=== PATIENT | male | born 1990 | race Caucasian/White ===

== ENCOUNTER 2016-07-24 11:39 | Emergency (ER) | payer MEDICAID ==
[2015-11-22 08:36] VITALS: BMI 23.6
== END 2016-07-24 13:15 | disposition short-term general hospital (02) ==
LOC: C.ER 11:39
DX: Z00.8 Encounter for other general examination (principal)

== ENCOUNTER 2017-12-16 11:38 | Inpatient (IN) | payer MEDICAID ==
[2017-12-16 11:38] VITALS: BMI 23.6
[2017-12-16] MEDS ORDERED: Iohexol 240 (50 ml) PO ONE (12:49)
[2017-12-16] MEDS ORDERED: Iohexol 240 (50 ml) ONE (12:58)
[2017-12-16 13:20] LABS: BASO % 0.6 % (0.0-2.0); EOS # 0.1 K/uL (0.0-0.7); EOS % 0.8 % (0.0-4.0); HEMOGLOBIN 14.7 g/dL (12.0-18.0); LYMPH # 2.7 K/uL (1.0-4.3); LYMPH % 35.3 % (20.0-40.0); MEAN CELL VOLUME 86.8 fL (80.0-94.0); MEAN CORPUSCULAR HEMOGLOBIN 28.7 pg (27.0-31.0); MEAN CORPUSCULAR HGB CONC 33.1 g/dL (33.0-37.0); MEAN PLATELET VOLUME 8.1 fL (7.2-11.7); MONO # 0.7 K/uL (0.0-0.8); MONO % 9.5 % (0.0-10.0); NEUT # 4.1 K/uL (1.8-7.0); NEUT % 53.8 % (50.0-75.0); RBC 5.13 Mil/uL (4.40-5.90); RED CELL DISTRIBUTION WIDTH 14.6 % (11.5-14.5); WHITE BLOOD COUNT 7.6 K/uL (4.8-10.8)
--- NOTE | 2017-12-16 13:24 | C.PDOC ---
History Of Present Illness 27 year old male with a psychiatric and HIV (2012) history presents to the ED for evaluation of scrotal pain bilaterally since February. Patient states he has not received HIV treatment. Notes bilateral heavy feeling to the scrotum, rectal pain with bowel movement for the last 3-4 days, feels a ball in the rectal area, and daily diarrhea after every meal for the last few months. Poor historian. Denies recent anal intercourse, foreign body incursion to the rectum, fever, nausea, vomiting, and any other associated symptoms. <Aziza Taylor - Last Filed: 12/16/17 17:31> <Modesta Bella - Last Filed: 12/16/17 14:37> History Per: Patient History/Exam Limitations: no limitations Onset/Duration Of Symptoms: Days Current Symptoms Are (Timing): Still Present <Aziza Taylor - Last Filed: 12/16/17 17:31> Time Seen by Provider: 12/16/17 12:22 Chief Complaint (Nursing): Male Genitourinary Past Medical History Vital Signs: Last Vital Signs Temp 98 F 12/16/17 11:51 Pulse 97 H 12/16/17 11:51 Resp 18 12/16/17 11:51 BP 112/77 12/16/17 11:51 Pulse Ox 98 12/16/17 14:03 - [facility] Procedures PSYCHIA INTERV/EVAL NEC (05/20/14) VENOUS PUNCTURE NEC (05/20/14) <Modesta Bella - Last Filed: 12/16/17 14:37> Reviewed: Historical Data, Nursing Documentation, Vital Signs Vital Signs: Last Vital Signs Temp 98 F 12/16/17 11:51 Pulse 97 H 12/16/17 11:51 Resp 18 12/16/17 11:51 BP 112/77 12/16/17 11:51 Pulse Ox 98 12/16/17 11:51 - Medical History PMH: Anxiety, Bipolar Disorder, Depression, HIV, Post Traumatic Stress Disorder, Schizophrenia Denies: Diabetes, Hepatitis, HTN, Seizures, Sexually Transmitted Disease - [facility] Procedures PSYCHIA INTERV/EVAL NEC (05/20/14) VENOUS PUNCTURE NEC (05/20/14) Family History: States: Unknown Family Hx - Social History Hx Tobacco Use: Yes Hx Alcohol Use: No Hx Substance Use: Yes - Immunization History Hx Tetanus Toxoid Vaccination: No Hx Influenza Vaccination: No Hx Pneumococcal Vaccination: No <Aziza Taylor - Last Filed: 12/16/17 17:31> Review Of Systems Except As Marked, All Systems Reviewed And Found Negative. Constitutional: Negative for: Fever, Chills Gastrointestinal: Positive for: Diarrhea, Rectal Pain (with bowel movement. foreign body sensation. ). Negative for: Nausea, Vomiting Genitourinary: Positive for: Other (heaviness to the scrotum. ) <Aziza Taylor - Last Filed: 12/16/17 17:31> Physical Exam - Physical Exam Appears: Non-toxic, Other (well developed. well nourished.) Skin: Normal Color, Warm, Dry, No Other (erythema.) Head: Atraumatic, Normacephalic Eye(s): bilateral: Normal Inspection Oral Mucosa: Moist Neck: Normal ROM, Supple Chest: Symmetrical, No Deformity Cardiovascular: Rhythm Regular, No Murmur Respiratory: Normal Breath Sounds, No Rales, No Rhonchi, No Wheezing Gastrointestinal/Abdominal: Normal Exam, Soft, No Tenderness Rectal: No Hemorrhoids (external ), Other (excoriation at the 3 oclock position. pt unable to tolerate rectal exam due to pain. ) Back: No CVA Tenderness, No Vertebral Tenderness, No Paraspinal Tenderness Male Genital: No Testicular Tenderness, No Testicular Swelling, No Circumcised, Other (no penile discharge. no lesions on penis. scrotum appears normal. 2mm punctate on the scrotum.) Extremity: Normal ROM (x4) Neurological/Psych: Oriented x3, Normal Speech Gait: Steady <Aziza Taylor - Last Filed: 12/16/17 17:31> ED Course And Treatment - Laboratory Results Result Diagrams: 12/16/17 12:57 12/16/17 12:57 <Modesta Bella - Last Filed: 12/16/17 14:37> - Laboratory Results Result Diagrams: 12/16/17 12:57 12/16/17 12:57 O2 Sat by Pulse Oximetry: 98 (RA) Pulse Ox Interpretation: Normal - CT Scan/US Testicular US Other Rad Studies (CT/US): Read By Radiologist CT/US Interpretation: FINDINGS: RIGHT TESTICLE: Measures 5.5 x 2.6 x 2.8 cm. Homogeneous echotexture. No mass. Normal blood flow demonstrated. RIGHT EPIDIDYMIS: Normal size, morphology and vascularity. Incidental 2 mm epididymal cyst noted.. LEFT TESTICLE: Measures 5.3 x 2.3 x 3.3 cm. Homogeneous echotexture. No mass. Normal blood flow demonstrated. LEFT EPIDIDYMIS: Normal size, morphology and vascularity.. HYDROCELE: None. VARICOCELE: Left varicocele noted. OTHER FINDINGS: None. IMPRESSION: Left varicocele. 2 mm right epididymal cyst. Otherwise unremarkable examination. <Aziza Taylor - Last Filed: 12/16/17 17:31> Medical Decision Making Medical Decision Making: Plan: --CT ABD/Pelvic PO & IV Contrast --Blood sent. --Chlamydia/GC RNA --Given Iohexol. --Urinalysis. --Testicular US Progress/Update: Given the patient's HIV history, labs and abdominal CT was ordered to rule out rectal abscess and any other pathology. [id number] Nguyễn <Aziza Taylor - Last Filed: 12/16/17 17:31> Disposition <Modesta Bella - Last Filed: 12/16/17 14:37> Discussed With : Ila Edwards Doctor Will See Patient In The: Hospital - Disposition Disposition Time: 17:31 <Aziza Taylor - Last Filed: 12/16/17 17:31> - Disposition Disposition: HOSPITALIZED Condition: STABLE Forms: [facility] (Tuvaluan) - Clinical Impression Clinical Impression: Proctitis - PA / TWIST TESTER / Resident Statement MD/DO has reviewed & agrees with the documentation as recorded. - Scribe Statement The provider has reviewed the documentation as recorded by the Scribe (Lesley Cha) All medical record entries made by the Scribe were at my direction and personally dictated by me. I have reviewed the chart and agree that the record accurately reflects my personal performance of the history, physical exam, medical decision making, and the department course for this patient. I have also personally directed, reviewed, and agree with the discharge instructions and disposition. <Aziza Taylor - Last Filed: 12/16/17 17:31>
[2017-12-16 13:39] LABS: ALB/GLOB RATIO 1.1 (1.0-2.1); ALBUMIN 4.1 g/dL (3.5-5.0); ALT/SGPT 28 U/L (21-72); AST/SGOT 23 U/L (17-59); BLOOD UREA NITROGEN 13 mg/dL (9-20); CALCIUM 8.9 mg/dl (8.6-10.4); GFR NON-AFRICAN AMERICAN > 60; LIPASE 29 U/L (23-300)
--- NOTE | 2017-12-16 14:11 | US ---
Date of service: 12/16/2017 HISTORY: bilateral teste pain TECHNIQUE: Realtime sonography through the scrotum with color and doppler flow. COMPARISON: None Available. FINDINGS: RIGHT TESTICLE: Measures 5.5 x 2.6 x 2.8 cm. Homogeneous echotexture. No mass. Normal blood flow demonstrated. RIGHT EPIDIDYMIS: Normal size, morphology and vascularity. Incidental 2 mm epididymal cyst noted.. LEFT TESTICLE: Measures 5.3 x 2.3 x 3.3 cm. Homogeneous echotexture. No mass. Normal blood flow demonstrated. LEFT EPIDIDYMIS: Normal size, morphology and vascularity.. HYDROCELE: None. VARICOCELE: Left varicocele noted. OTHER FINDINGS: None. IMPRESSION: Left varicocele. 2 mm right epididymal cyst. Otherwise unremarkable examination.
[2017-12-16] MEDS ORDERED: Iodixanol 320 mg/ml 150 ml Bottle IV ONE (14:29)
[2017-12-16 15:46] LABS: URINE BILIRUBIN NEGATIVE (NEGATIVE); URINE BLOOD NEGATIVE (NEGATIVE); URINE CLARITY Clear (Clear); URINE COLOR Yellow (YELLOW); URINE GLUCOSE (UA) NORMAL (Normal); URINE LEUKOCYTE ESTERASE NEG Leu/uL (Negative); URINE PROTEIN NEGATIVE (NEGATIVE); URINE UROBILINOGEN NORMAL mg/dL (0.2-1.0)
--- NOTE | 2017-12-16 16:07 | CT ---
Date of service: 12/16/2017 PROCEDURE: CT Abdomen and Pelvis with contrast HISTORY: hx untreated hiv, rectal pain COMPARISON: None. TECHNIQUE: Following oral and intravenous contrast administration, a CT examination of the abdomen and pelvis performed from the domes of the diaphragms to the symphysis pubis with reformatted datasets provided not only axial but also sagittal and coronal series. Coronal and sagittal reformats were generated. contrast dose: Visipaque 320, 100 cc Radiation dose: Total exam DLP = 421.17 mGy-cm. This CT exam was performed using one or more of the following dose reduction techniques: Automated exposure control, adjustment of the mA and/or kV according to patient size, and/or use of iterative reconstruction technique. FINDINGS: LOWER THORAX: Unremarkable. LIVER: Unremarkable. No gross lesion or ductal dilatation. GALLBLADDER AND BILE DUCTS: Unremarkable. PANCREAS: Unremarkable. No gross lesion or ductal dilatation. SPLEEN: The megaly without focal mass. Spleen measures up to 13.7 cm. ADRENALS: Unremarkable. No mass. KIDNEYS AND URETERS: Unremarkable. No hydronephrosis. No solid mass. VASCULATURE: Unremarkable. No aortic aneurysm. BOWEL: No bowel obstruction is identified. Small large-bowel loops appear grossly nonfocal with limited retained fecal material scattered throughout left hemicolon, [id number] the right. The stomach is unremarkable. Limited rectal thickening is suggested the inferior rectum may reflect limited proctitis. Local pericolic rectal reaction and shotty lymph nodes are identified and clinically correlate for potential infectious or inflammatory process with neoplasm not completely excluded. APPENDIX: The appendix appears upper limits normal thickness and is likely not acutely inflamed. It does not filled oral contrast material however clinically correlate for potential appendicitis. PERITONEUM: Unremarkable. No free fluid. No free air. LYMPH NODES: Unremarkable. No enlarged lymph nodes. BLADDER: Urinary bladder wall is in and smooth without suspicious nodularity. REPRODUCTIVE: Unremarkable. BONES: No acute fracture. OTHER FINDINGS: None. IMPRESSION: 1. Findings most compatible with inferior rectal proctitis. No abscess. 2. Likely no appendicitis or appendix is upper limits normal caliber and does not feel that oral contrast material though the cecum is well opacified. Clinically correlate further though independent appendicitis is not suspected. 3. Splenomegaly.
[2017-12-16] MEDS ORDERED: cefTRIAXone IV 1 gm in Dextros 50 ML IVPB STA (17:23)
[2017-12-16] MEDS ORDERED: Tmp-Smz 800 mg-160 mg DS Tab PO STA (17:30)
[2017-12-16] MEDS ORDERED: cefTRIAXone 1 gm 1 GM/100 ML BAG IVPB ONE (17:42)
[2017-12-16] MEDS ORDERED: Tmp-Smz 800 mg-160 mg DS Tab ONE (17:49)
[2017-12-17 08:00] LABS: B-TYPE NATRIURETIC PEPTIDE 23.9 pg/mL (0-450)
[2017-12-17 08:50] LABS: IRON 71 ug/dL (49-181)
[2017-12-17 08:56] LABS: FOLATE 9.4 ng/mL
[2017-12-17 09:02] LABS: % IRON SATURATION 25 (20-55); TOTAL IRON BINDING CAPACITY 279 ug/dL (250-450)
[2017-12-17] MEDS: Divalproex 500 mg DR Tab PO SCH ×2 (09:54→17:31)
[2017-12-17] MEDS: Enoxaparin 30 mg Syringe SC SCH (09:54)
[2017-12-17] MEDS ORDERED: QUETIAPINE PO SCH (10:00)
--- NOTE | 2017-12-17 18:29 | CP.PCM.CON ---
History of Present Illness - History of Present Illness History of Present Illness: 27 year old male with a psychiatric and HIV (2012) history presents to the ED for evaluation of rectal pain and scrotal discomfort. Denies recent anal intercourse, foreign body incursion to the rectum, admits to recurrent diarrhea and rectal pain CT done in ER + for proctitis not taking any HIV meds and doesnnt know his viral load or T cell count - Medical History PMH: Anxiety, Bipolar Disorder, Depression, HIV, Post Traumatic Stress Disorder, Schizophrenia Denies: Diabetes, Hepatitis, HTN, Seizures, Sexually Transmitted Disease - [facility] Procedures PSYCHIA INTERV/EVAL NEC (05/20/14) VENOUS PUNCTURE NEC (05/20/14) Review of Systems - Review of Systems All systems: reviewed and no additional remarkable complaints except - Constitutional Constitutional: As Per HPI - EENT Eyes: absent: As Per HPI, Blind Spots, Blurred Vision, Change in Vision, Decreased Night Vision, Diplopia, Discharge, Dry Eye, Exophthalmos, Floaters, Irritation, Itchy Eyes, Loss of Peripheral Vision, Pain, Photophobia, Requires Corrective Lenses, Sees Flashes, Spots in Vision, Tunnel Vision, Other Visual Disturbances, Loss of Vision, Other Ears: absent: As Per HPI, Decreased Hearing, Ear Discharge, Ear Pain, Tinnitus, Abnormal Hearing, Disequilibrium, Dizziness, Other Nose/Mouth/Throat: absent: As Per HPI, Epistaxis, Nasal Congestion, Nasal Discharge, Nasal Obstruction, Nasal Trauma, Nose Pain, Post Nasal Drip, Sinus Pain, Sinus Pressure, Bleeding Gums, Change in Voice, Dental Pain, Dry Mouth, Dysphagia, Halitosis, Hoarsness, Lip Swelling, Mouth Lesions, Mouth Pain, Odynophagia, Sore Throat, Throat Swelling, Tongue Swelling, Facial Pain, Neck Pain, Neck Mass, Other - Cardiovascular Cardiovascular: absent: As Per HPI, Acrocyanosis, Chest Pain, Chest Pain at Rest, Chest Pain with Activity, Claudication, Diaphoresis, Dyspnea, Dyspnea on Exertion, Edema, Irregular Heart Rhythm, Pain Radiating to Arm/Neck/Jaw, Leg Edema, Leg Ulcers, Lightheadedness, Orthopnea, Palpitations, Paroxysmal Nocturnal Dyspnea, Pedal Edema, Radiating Pain, Rapid Heart Rate, Slow Heart Rate, Syncope, Other - Respiratory Respiratory: absent: As Per HPI, Cough, Dyspnea, Hemoptysis, Dyspnea on Exertion, Wheezing, Snoring, Stridor, Pain on Inspiration, Chest Congestion, Excessive Mucous Production, Change in Mucous Color, Pain with Coughing, Other - Gastrointestinal Gastrointestinal: As Per HPI - Genitourinary Genitourinary: As Per HPI - Musculoskeletal Musculoskeletal: absent: As Per HPI, Abnormal Gait, Arthralgias, Atrophy, Back Pain, Deformity, Joint Swelling, Limited Range of Motion, Loss of Height, Muscle Cramps, Muscle Weakness, Myalgias, Neck Pain, Numbness, Radiating Pain into Limb, Stiffness, Tingling, Other - Integumentary Integumentary: absent: As Per HPI, Acne, Alopecia, Bleeding Lesions, Change in Hair, Change in Nails, Change in Pigmentation, Changing Lesions, Dry Skin, Erythema, Furuncle, Hirsutism, Lesions, New Lesions, Non-Healing Lesions, Photosensitivity, Pruritus, Rash, Skin Pain, Skin Ulcer, Sores, Striae, Swelling, Unusual Bruising, Wounds, Jaundice, Other - Neurological Neurological: absent: As Per HPI, Abnormal Gait, Abnormal Hearing, Abnormal Movements, Abnormal Speech, Behavioral Changes, Burning Sensations, Confusion, Convulsions, Disequilibrium, Dizziness, Numbness, Focal Weakness, Frequent Falls, Headaches, Lack of Coordination, Loss of Vision, Memory Loss, Pares thesias, Radicular Pain, Restless Legs, Sensory Deficit, Syncope, Tingling, Tremor, Vertigo, Weakness, Other Visual Disturbances, Other - Psychiatric Psychiatric: As Per HPI - Endocrine Endocrine: absent: As Per HPI, Change in Body Appearance, Change in Libido, Cold Intolorance, Deepening of Voice, Excessive Sweating, Fatigue, Flushing, Heat Intolorance, Increase in Ring/Shoe/Hat Size, Palpitations, Polydipsia, Polypha ledy, Polyuria, Other - Hematologic/Lymphatic Hematologic: absent: As Per HPI, Easy Bleeding, Easy Bruising, Lymphadenopathy, Other Past Patient History - Infectious Disease Hx of Infectious Diseases: None - Tetanus Immunizations Tetanus Immunization: Unknown - Past Social History Smoking Status: Light Smoker < 10 Cigarettes Daily - CARDIAC Hx Hypertension: No - PULMONARY Hx Tuberculosis: No - NEUROLOGICAL Hx Seizures: No - HEMATOLOGICAL/ONCOLOGICAL Hx Human Immunodeficiency Virus (HIV): Yes - MUSCULOSKELETAL/RHEUMATOLOGICAL Hx Falls: No - GENITOURINARY/GYNECOLOGICAL Hx Sexually Transmitted Disorders: No - PSYCHIATRIC Hx Anxiety: Yes Hx Bipolar Disorder: Yes Hx Depression: Yes Hx Post Traumatic Stress Disorder: Yes Hx Schizophrenia: Yes Hx Substance Use: Yes - SURGICAL HISTORY Hx Surgeries: No - ANESTHESIA Hx Anesthesia: No Hx Anesthesia Reactions: No Hx Malignant Hyperthermia: No Meds Allergies/Adverse Reactions: Allergies Allergy/AdvReac Type Severity Reaction Status Date / Time No Known Allergies Allergy Verified 12/16/17 11:54 - Medications Medications: Current Medications Acetaminophen (Tylenol 325mg Tab) 650 mg PO Q4H PRN PRN Reason: pain fever Last Admin: 12/17/17 17:34 Dose: 650 mg Divalproex Sodium (Depakote Dr) 1,000 mg PO BID [facility] Last Admin: 12/17/17 17:31 Dose: 1,000 mg Enoxaparin Sodium (Lovenox) 30 mg SC DAILY [facility] Last Admin: 12/17/17 09:54 Dose: 30 mg Famotidine (Pepcid) 40 mg PO DAILY [facility] Last Admin: 12/17/17 09:54 Dose: 40 mg Influenza Virus Vaccine (Fluzone Quad [id number]) 60 mcg IM .ONCE ONE Stop: 12/19/17 14:01 Ondansetron HCl (Zofran Inj) 4 mg IVP Q6 PRN PRN Reason: Nausea/Vomiting Pneumococcal Polyvalent Vaccine (Pneumovax 23 Vaccine) 0.5 ml IM .ONCE ONE Stop: 12/19/17 14:01 Quetiapine Fumarate (Seroquel) 50 mg PO [facility] Physical Exam - Constitutional Appears: Non-toxic, Chronically Ill - Head Exam Head Exam: NORMOCEPHALIC - Eye Exam Eye Exam: absent: Scleral icterus - ENT Exam ENT Exam: Mucous Membranes Dry - Neck Exam Neck exam: Negative for: Lymphadenopathy - Respiratory Exam Respiratory Exam: Decreased Breath Sounds, Clear to Auscultation Bilateral - Cardiovascular Exam Cardiovascular Exam: REGULAR RHYTHM, +S1, +S2 - GI/Abdominal Exam GI & Abdominal Exam: Diminished Bowel Sounds, Soft. absent: Tenderness - Rectal Exam Rectal Exam: Deferred - Exam Exam: NORMAL INSPECTION - Extremities Exam Extremities exam: Negative for: pedal edema - Back Exam Back exam: absent: CVA tenderness (L), CVA tenderness (R) - Neurological Exam Neurological exam: Alert, CN II-XII Intact, Oriented x3, Reflexes Normal - Psychiatric Exam Psychiatric exam: Normal Mood Results - Vital Signs Recent Vital Signs: Last Vital Signs Temp 98.1 F 12/17/17 15:55 Pulse 74 12/17/17 15:55 Resp 20 12/17/17 15:55 BP 101/63 12/17/17 15:55 Pulse Ox 97 12/17/17 15:55 - Labs Result Diagrams: 12/16/17 12:57 12/16/17 12:57 Labs: Laboratory Results - last 24 hr 12/16/17 12/17/17 12/17/17 17:44 07:22 07:22 Hemoglobin A1c 5.1 Iron TIBC % Saturation NT-Pro-B Natriuret Pep 23.9 Triglycerides 78 Cholesterol 87 LDL Cholesterol Direct 46 HDL Cholesterol 20 L Vitamin B12 449 Folate 9.4 RPR Nonreactive 12/17/17 07:22 Hemoglobin A1c Iron 71 TIBC 279 % Saturation 25 NT-Pro-B Natriuret Pep Triglycerides Cholesterol LDL Cholesterol Direct HDL Cholesterol Vitamin B12 Folate RPR Assessment & Plan (1) Proctitis Status: Acute (2) Manic bipolar I disorder Status: Acute - Assessment and Plan (Free Text) Assessment: HIV r/o STD cont iv and PO rx GI eval recommended
[2017-12-17] MEDS: Tmp-Smz 800 mg-160 mg DS Tab PO SCH (19:24)
[2017-12-17] MEDS: Vancomycin 1 gm/NS 200 ml 1 GM/200 ML BAG IVPB SCH (21:04)
--- NOTE | 2017-12-18 03:46 | PN ---
DATE: 12/17/2017 SUBJECTIVE: The patient is a 27-year-old male. The patient is seen and examined at the bedside on 12/17/2017. Looking comfortable. Still has rectal pain, once in a while getting recurrent diarrhea. Very noncompliant. Not taking HIV medications, urged to take that. No fever, no chills. No headache. No dizziness. No chest pain or palpitation. PHYSICAL EXAMINATION: VITAL SIGNS: Temperature 98.1, pulse 74, respiratory rate 20, blood pressure 101/63, pulse oximetry 97. HEENT: Head, normocephalic and atraumatic. Eyes, PERRLA. Extraocular muscles intact. Conjunctivae clear. Nose patent. Mucous membranes moist. NECK: Supple. No carotid bruits. No JVD or thyromegaly. CHEST: Bilaterally symmetrical. HEART: S1 and S2 positive. LUNGS: Clear to auscultation. ABDOMEN: Soft. Positive bowel sounds. No organomegaly. EXTREMITIES: No edema, no cyanosis. NEUROLOGIC: The patient is awake, alert. Follows simple commands. LABORATORY DATA: White blood cells noted , hemoglobin 14.7, hematocrit 44.5, platelets 294. Sodium 147, potassium 4.1, BUN 30, creatinine 0.9, glucose 49. ASSESSMENT AND PLAN: Mr. Rakesh Acevedo is a 27-year-old male with hypoglycemia, has proctitis, manic bipolar disorder, human immunodeficiency virus positive, rule out sexually transmitted disease. Continue intravenous and oral antibiotics. We will put consult with Gastroenterology. CAT scan of abdomen and pelvis was done and reviewed by me. Testicular ultrasound was done also. Left varicocele, 2 mm; right epididymal cyst, otherwise unremarkable examination. CAT scan of the abdomen and pelvis reviewed, showed inferior rectal proctitis and no abscess. Urged to take medicines regularly. Repeat labs. We will follow up. Ila Edwards MD [email or web address]
[2017-12-18] MEDS: Tmp-Smz 800 mg-160 mg DS Tab PO SCH ×2 (06:33→17:51)
[2017-12-18 07:31] LABS: HEMOGLOBIN 14.8 g/dL (12.0-18.0); MEAN CELL VOLUME 86.4 fL (80.0-94.0); MEAN CORPUSCULAR HEMOGLOBIN 29.8 pg (27.0-31.0); MEAN CORPUSCULAR HGB CONC 34.5 g/dL (33.0-37.0); MEAN PLATELET VOLUME 8.3 fL (7.2-11.7); RBC 4.98 Mil/uL (4.40-5.90); RED CELL DISTRIBUTION WIDTH 14.3 % (11.5-14.5)
--- NOTE | 2017-12-18 07:49 | HP ---
CHIEF COMPLAINT: Rectal pain. HISTORY OF PRESENT ILLNESS: The patient is a 27-year-old male with a psychiatric history and HIV positive, who came to the emergency department for evaluation of scrotal pain bilaterally since February. The patient says that he never received HIV treatment, noticed bilaterally having feeling to the scrotum, rectal pain with bowel movements for the last three to four days, feeling a boil in the rectal area and daily diarrhea after every meal for the last few months. Poor historian. Denies recent anal intercourse, foreign body insertion to the rectum. No fever, chills, nausea, or vomiting. We admitted the patient to ID consult. REVIEW OF SYSTEMS: The patient was seen and examined at the bedside in the ER. This is a history and physical for 12/16/2017. The patient was seen and examined at bedside on 12/16/2017, looking comfortable. No fever. No chills. No nausea or vomiting. Feeling rectal pain. No dyspnea. PHYSICAL EXAMINATION: VITAL SIGNS: Temperature 98, heart rate 97, respiratory rate 18, blood pressure 112/77. HEENT: Head: Normocephalic and atraumatic. Eyes: PERRLA. Extraocular movements intact. Conjunctivae pale. Nose patent. Mucous membranes moist. NECK: Supple. No carotid bruits, JVD, or thyromegaly. CHEST: Bilaterally symmetrical. HEART: S1, S2 positive. LUNGS: Clear to auscultation. ABDOMEN: Soft. Bowel sounds are present. No organomegaly. EXTREMITIES: No edema. No cyanosis. NEUROLOGICAL: The patient is awake, alert, moving all four extremities. No focal deficits. LABORATORY DATA: White blood cells 7.6, hemoglobin 14.7, hematocrit 44.5, platelets 294. Sodium 147, potassium 4.1, BUN 13, creatinine 0.1, glucose 49. ASSESSMENT AND PLAN: The patient is a 27-year-old male with hypoglycemia, came with rectal pain. ____ ultrasound is done. According to that, the patient has left varicocele, 2 mm right epididymal cyst and proctitis. Human immunodeficiency virus positive. The patient is seen by Dr. Nguyễn also of Infectious Disease and antibiotic was started. The patient was noncompliant with human immunodeficiency virus medicine, advised to take medicine. The patient is understanding. He is oriented x3. The patient has a history of anxiety, bipolar disorder, depression, history of currently posttraumatic stress disorder, schizophrenia. Gastrointestinal and deep venous thrombosis prophylaxes given. Repeat labs. We will follow up. Ila Edwards MD
[2017-12-18 08:20] LABS: HEPATITIS B SURFACE AG Negative (NEGATIVE)
[2017-12-18 08:25] LABS: HEPATITIS A IGM NEGATIVE (NEGATIVE); HEPATITIS B CORE AB NEGATIVE (NEGATIVE)
[2017-12-18 08:37] LABS: HEPATITIS C ANTIBODY NEGATIVE (NEGATIVE)
[2017-12-18] MEDS: Divalproex 500 mg DR Tab PO SCH ×2 (10:31→17:52)
[2017-12-18] MEDS: Vancomycin 1 gm/NS 200 ml 1 GM/200 ML BAG IVPB SCH (10:32)
[2017-12-18] MEDS: Enoxaparin 30 mg Syringe SC SCH (10:32)
[2017-12-18] MEDS: cefTRIAXone 2 GM in Sodium Chloride 0.9% 100 ML IVPB SCH (10:33)
[2017-12-18] MEDS ORDERED: Tmp-Smz 800 mg-160 mg DS Tab PO SCH (11:30)
--- NOTE | 2017-12-18 17:38 | CP.PCM.PN ---
Subjective - Date & Time of Evaluation Date of Evaluation: 12/18/17 Time of Evaluation: 09:00 - Subjective Subjective: blood cultures positive repeat sent At some point will need GI eval to r/o Carcinoma in situ Objective - Vital Signs/Intake and Output Vital Signs (last 24 hours): Temp Pulse Resp BP Pulse Ox 98.5 F 66 18 106/67 97 12/18/17 07:00 12/18/17 07:00 12/18/17 14:22 12/18/17 07:00 12/18/17 14:22 Intake and Output: 12/18/17 12/18/17 06:59 18:59 Intake Total 600 Balance 600 - Medications Medications: Current Medications Acetaminophen (Tylenol 325mg Tab) 650 mg PO Q4H PRN PRN Reason: pain fever Last Admin: 12/17/17 17:34 Dose: 650 mg Divalproex Sodium (Depakote Dr) 1,000 mg PO BID [facility] Last Admin: 12/18/17 10:31 Dose: 1,000 mg Doxycycline Hyclate (Doryx) 100 mg PO Q12H [facility]; Protocol Last Admin: 12/18/17 06:33 Dose: 100 mg Enoxaparin Sodium (Lovenox) 30 mg SC DAILY [facility] Last Admin: 12/18/17 10:32 Dose: 30 mg Famotidine (Pepcid) 40 mg PO DAILY [facility] Last Admin: 12/18/17 10:32 Dose: 40 mg Ceftriaxone Sodium 2 gm/ (Sodium Chloride) 100 mls @ 100 mls/hr IVPB DAILY [facility]; Protocol Last Admin: 12/18/17 10:33 Dose: 100 mls/hr Vancomycin/Sodium Chloride (Vancomycin 1 Gm/Ns 200 Ml) 1 gm in 200 mls @ 133 mls/hr IVPB Q12H [facility]; Protocol Stop: 12/22/17 21:01 Last Admin: 12/18/17 10:32 Dose: 133 mls/hr Influenza Virus Vaccine (Fluzone Quad [id number]) 60 mcg IM .ONCE ONE Stop: 12/19/17 14:01 Ondansetron HCl (Zofran Inj) 4 mg IVP Q6 PRN PRN Reason: Nausea/Vomiting Pneumococcal Polyvalent Vaccine (Pneumovax 23 Vaccine) 0.5 ml IM .ONCE ONE Stop: 12/19/17 14:01 Quetiapine Fumarate (Seroquel) 50 mg PO [facility] Last Admin: 12/17/17 22:03 Dose: 50 mg Trimethoprim/Sulfamethoxazole (Bactrim Ds Tab) 1 tab PO 0630,1830 [facility]; Protocol - Labs Labs: 12/18/17 07:00 12/16/17 12:57 - Constitutional Appears: Non-toxic, Chronically Ill - Head Exam Head Exam: NORMOCEPHALIC - Eye Exam Eye Exam: PERRL - ENT Exam ENT Exam: Mucous Membranes Dry - Neck Exam Neck Exam: absent: Lymphadenopathy - Respiratory Exam Respiratory Exam: Decreased Breath Sounds - Cardiovascular Exam Cardiovascular Exam: REGULAR RHYTHM - GI/Abdominal Exam GI & Abdominal Exam: Distended, Soft - Rectal Exam Rectal Exam: Deferred - Exam Exam: NORMAL INSPECTION - Extremities Exam Extremities Exam: absent: Pedal Edema - Back Exam Back Exam: absent: CVA tenderness (L), CVA tenderness (R) Assessment and Plan (1) Proctitis Status: Acute (2) Manic bipolar I disorder Status: Acute - Assessment and Plan (Free Text) Assessment: 27 yo male with hx of mental health problems and HIV ( off HAART) is admitted with rectal pain Has positive blood c/s which could be contaminant empiric rx for bacteremia , chlamydia, gonnorhea etc At some point will need GI eval to r/o Carcinoma in situ Started PCP prophylaxis
--- NOTE | 2017-12-18 17:39 | CP.PCM.PCO ---
Physician Communication Note - Physician Communication Note Physician Communication Note: will need GI eval
--- NOTE | 2017-12-19 05:07 | PN ---
DATE: 12/18/2017SUBJECTIVE: The patient is a 27-year-old male. The patient was seen and examined at bedside on 12/18/2017, looking comfortable. Blood cultures are positive. Repeat cultures sent by Dr. Nguyễn. According to him, the patient needs a GI evaluation for carcinoma in situ. No fever. No chills. PHYSICAL EXAMINATION: VITAL SIGNS: Temperature 98.5, pulse 66, respiratory rate 18, blood pressure 102/67, and pulse oximetry 97. HEENT: Head, normocephalic and atraumatic. Eyes, PERRLA. Extraocular muscles intact. Conjunctivae clear. Nose is patent. Mucous membranes moist. NECK: Supple. No carotid bruit, JVD, or thyromegaly. CHEST: Bilaterally symmetrical. HEART: S1 and S2 positive. LUNGS: Clear to auscultation. ABDOMEN: Soft. Bowel sounds present. No organomegaly. EXTREMITIES: No edema. No cyanosis. NEUROLOGIC: The patient is awake and alert. Moving all four extremities. No focal deficits. MEDICATIONS: Tylenol, Depakote, doxycycline, Lovenox, Pepcid, ceftriaxone, vancomycin, Fluzone, Zofran, and pneumonia vaccine. LABORATORY DATA: White blood cells 6.7, hemoglobin 14.8, hematocrit 42.1, and platelets 272. Sodium 147, potassium 4.1, BUN 30, creatinine 0.9, and glucose 49. ASSESSMENT AND PLAN: Mr. 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 Admitted with rectal pain. Has positive blood cultures which proved to be contaminated. Empiric treatment for bacteremia . According to Dr. Nguyễn, we need a gastroenterology evaluation to rule out carcinoma in situ. prophylaxis. We will call Gastroenterology. We will follow up. Ila Edwards MD MTDD
[2017-12-19] MEDS: Tmp-Smz 800 mg-160 mg DS Tab PO SCH ×2 (06:09→18:45)
[2017-12-19 06:42] LABS: HEMOGLOBIN 15.7 g/dL (12.0-18.0); MEAN CORPUSCULAR HEMOGLOBIN 29.8 pg (27.0-31.0); MEAN CORPUSCULAR HGB CONC 34.7 g/dL (33.0-37.0); MEAN PLATELET VOLUME 8.3 fL (7.2-11.7); RBC 5.28 Mil/uL (4.40-5.90); RED CELL DISTRIBUTION WIDTH 14.2 % (11.5-14.5); WHITE BLOOD COUNT 7.9 K/uL (4.8-10.8)
[2017-12-19 08:11] LABS: BLOOD UREA NITROGEN 12 mg/dL (9-20); CALCIUM 9.3 mg/dl (8.6-10.4); GFR NON-AFRICAN AMERICAN > 60
--- NOTE | 2017-12-19 08:36 | CP.PCM.CON ---
<Harpreet Long - Last Filed: 12/19/17 14:08> History of Present Illness - History of Present Illness History of Present Illness: PGY-4 GI Fellow Consult Note Pt is a 27 yo Hisp Male with HIV (non on HAART, last CD4 unknown), h/o bipolar/jovanny who presented on 12/16/17 with complaints of scrotal pain, rectal pain and diarrhea. After being diagnosis with varicocele, GI consulted for the diarrhea, rectal pain and concerns of underlying rectal malignancy. He states that the scrotal pain had been chronic for months. However, he states that over the last several days he has noticed some rectal pain, usually only when he is moving his bowels. States that he has also had loose stools over that time and may feel like there is a "boil" in rectal area. He reports loose yellowish diarrhea about 3x per day, sometimes more if he is eating, less if he is not eating. He states that he normally does not have nocturnal symptoms. He denies any abdominal pain, recent anal intercourse nor foreign body insertion, recent travel, antibiotic use, change in diet, undercooked foods, hematemeis, melena, dysphagia, odynophagia, hematochezia. He thinks he has lost some weight but is unsure about amount and over what period of time. No prior EGD/CSPY. 12 point ROS negative other than stated above MHx: See above SurgHx: None Meds: Review in MAR FamHx: Denied GI problems SocHx: ~1/4 ppd tob abuse, social EtOH, smokes MJ and meth occasionally All: NKDA Past Patient History - Infectious Disease Hx of Infectious Diseases: None - Tetanus Immunizations Tetanus Immunization: Unknown - Past Medical History & Family History Past Medical History?: Yes - Past Social History Smoking Status: Heavy Smoker > 10 Cigarettes Daily - CARDIAC Hx Hypertension: No - PULMONARY Hx Tuberculosis: No - NEUROLOGICAL Hx Seizures: No - RENAL Hx Chronic Kidney Disease: No - HEMATOLOGICAL/ONCOLOGICAL Hx Human Immunodeficiency Virus (HIV): Yes - MUSCULOSKELETAL/RHEUMATOLOGICAL Hx Falls: Yes - GENITOURINARY/GYNECOLOGICAL Hx Sexually Transmitted Disorders: No - PSYCHIATRIC Hx Anxiety: Yes Hx Bipolar Disorder: Yes Hx Depression: Yes Hx Post Traumatic Stress Disorder: Yes Hx Schizophrenia: No Hx Substance Use: Yes - SURGICAL HISTORY Hx Surgeries: No - ANESTHESIA Hx Anesthesia: Yes Hx Anesthesia Reactions: No Hx Malignant Hyperthermia: No Meds Allergies/Adverse Reactions: Allergies Allergy/AdvReac Type Severity Reaction Status Date / Time No Known Allergies Allergy Verified 12/16/17 11:54 - Medications Medications: Current Medications Acetaminophen (Tylenol 325mg Tab) 650 mg PO Q4H PRN PRN Reason: pain fever Last Admin: 12/17/17 17:34 Dose: 650 mg Divalproex Sodium (Depakote Dr) 1,000 mg PO BID [facility] Last Admin: 12/18/17 17:52 Dose: 1,000 mg Doxycycline Hyclate (Doryx) 100 mg PO Q12H [facility]; Protocol Last Admin: 12/19/17 06:09 Dose: 100 mg Enoxaparin Sodium (Lovenox) 30 mg SC DAILY [facility] Last Admin: 12/18/17 10:32 Dose: 30 mg Famotidine (Pepcid) 40 mg PO DAILY [facility] Last Admin: 12/18/17 10:32 Dose: 40 mg Ceftriaxone Sodium 2 gm/ (Sodium Chloride) 100 mls @ 100 mls/hr IVPB DAILY [facility]; Protocol Last Admin: 12/18/17 10:33 Dose: 100 mls/hr Influenza Virus Vaccine (Fluzone Quad 8977-1908) 60 mcg IM .ONCE ONE Stop: 12/19/17 14:01 Ondansetron HCl (Zofran Inj) 4 mg IVP Q6 PRN PRN Reason: Nausea/Vomiting Pneumococcal Polyvalent Vaccine (Pneumovax 23 Vaccine) 0.5 ml IM .ONCE ONE Stop: 12/19/17 14:01 Quetiapine Fumarate (Seroquel) 50 mg PO HS [facility] Last Admin: 12/18/17 21:47 Dose: 50 mg Trimethoprim/Sulfamethoxazole (Bactrim Ds Tab) 1 tab PO 0630,1830 [facility]; Protocol Last Admin: 12/19/17 06:09 Dose: 1 tab Physical Exam - Constitutional Appears: Well, Non-toxic, No Acute Distress - Head Exam Head Exam: ATRAUMATIC, NORMAL INSPECTION - Eye Exam Eye Exam: EOMI, Normal appearance. absent: Conjunctival injection, Scleral icterus - ENT Exam ENT Exam: Mucous Membranes Moist, Normal External Ear Exam. absent: Mucous Membranes Dry - Respiratory Exam Respiratory Exam: Clear to Auscultation Bilateral, NORMAL BREATHING PATTERN. absent: Accessory Muscle Use - Cardiovascular Exam Cardiovascular Exam: REGULAR RHYTHM, RRR. absent: Systolic Murmur - GI/Abdominal Exam GI & Abdominal Exam: Normal Bowel Sounds, Soft. absent: Bruit, Diminished Bowel Sounds, Distended, Firm, Guarding, Hyperactive Bowel Sounds, Hypoactive Bowel Sounds, Mass, Organomegaly, Pulsatile Mass, Rebound, Rigid, Tenderness - Rectal Exam Additional comments: Pt declined rectal exam (states prefers to have during colonoscopy) Results - Vital Signs Recent Vital Signs: Last Vital Signs Temp 97.7 F 12/19/17 07:00 Pulse 67 12/19/17 07:00 Resp 20 12/19/17 07:00 BP 116/73 12/19/17 07:00 Pulse Ox 96 12/19/17 07:00 - Labs Result Diagrams: 12/19/17 06:19 12/19/17 06:19 Labs: Laboratory Results - last 24 hr 12/16/17 12/18/17 12/19/17 15:31 07:00 06:19 WBC 7.9 RBC 5.28 Hgb 15.7 Hct 45.4 MCV 86.0 MCH 29.8 MCHC 34.7 RDW 14.2 Plt Count 269 MPV 8.3 Sodium Potassium Chloride Carbon Dioxide Anion Gap BUN Creatinine Est GFR ( Amer) Est GFR (Non-Af Amer) Random Glucose Calcium C.trachomatis RNA (TMA) Not detected Hepatitis C Antibody Negative N.gonorrhoeae RNA (TMA) Not detected 12/19/17 06:19 WBC RBC Hgb Hct MCV MCH MCHC RDW Plt Count MPV Sodium 141 Potassium 4.5 Chloride 105 Carbon Dioxide 23 Anion Gap 18 BUN 12 Creatinine 0.9 Est GFR ( Amer) > 60 Est GFR (Non-Af Amer) > 60 Random Glucose 75 Calcium 9.3 C.trachomatis RNA (TMA) Hepatitis C Antibody N.gonorrhoeae RNA (TMA) Assessment & Plan - Assessment and Plan (Free Text) Assessment: 27 yo Hisp Male with HIV (not on HAART, unknown CD4) presenting with rectal pain and diarrhea. # Rectal Pain, Acute Diarrhea: CT findings with inferior rectal proctitic and associated lymphadenopathy. Recent onset of diarrhea in last 30 days. Given history and risk factors, most concerning would be infectious/opportunistic infections; however, does raise concerns of possible osmotic/dietary component given worse PO intake component and minimal nocturnal symptoms, though less likely/urgent. # Coag Neg Staph bacteremia: 3/4 bottles, per notes suspected to be contaminate, Echo pending and ID following # HIV: Not on HAART, CD4 count pending. ID following. Plan: - Check Cdiff, Stool Cx and O&P - Antibiotics per ID - Plan for Colonoscopy +/- EGD on 12/21/17 - Clear Liq Diet starting 12/20 - Pt declined rectal exam, to be done during endoscopy Thank you for the consult; will cont to follow. Pt discussed with Dr. Grewal. See attestation for further re <Jonh Grewal - Last Filed: 12/19/17 16:13> Meds - Medications Medications: Current Medications Acetaminophen (Tylenol 325mg Tab) 650 mg PO Q4H PRN PRN Reason: pain fever Last Admin: 12/17/17 17:34 Dose: 650 mg Divalproex Sodium (Depakote Dr) 1,000 mg PO BID [facility] Last Admin: 12/19/17 11:03 Dose: 1,000 mg Doxycycline Hyclate (Doryx) 100 mg PO Q12H [facility]; Protocol Last Admin: 12/19/17 06:09 Dose: 100 mg Enoxaparin Sodium (Lovenox) 30 mg SC DAILY [facility] Last Admin: 12/19/17 11:02 Dose: 30 mg Famotidine (Pepcid) 40 mg PO DAILY [facility] Last Admin: 12/19/17 11:03 Dose: 40 mg Ceftriaxone Sodium 2 gm/ (Sodium Chloride) 100 mls @ 100 mls/hr IVPB DAILY [facility]; Protocol Last Admin: 12/19/17 11:03 Dose: 100 mls/hr Ondansetron HCl (Zofran Inj) 4 mg IVP Q6 PRN PRN Reason: Nausea/Vomiting Quetiapine Fumarate (Seroquel) 50 mg PO HS [facility] Last Admin: 12/18/17 21:47 Dose: 50 mg Trimethoprim/Sulfamethoxazole (Bactrim Ds Tab) 1 tab PO 0630,1830 [facility]; Protocol Last Admin: 12/19/17 06:09 Dose: 1 tab Results - Vital Signs Recent Vital Signs: Last Vital Signs Temp 98.3 F 12/19/17 15:24 Pulse 68 12/19/17 15:24 Resp 18 12/19/17 15:24 BP 100/69 12/19/17 15:24 Pulse Ox 99 12/19/17 15:24 - Labs Result Diagrams: 12/19/17 06:19 12/19/17 06:19 Labs: Laboratory Results - last 24 hr 12/19/17 12/19/17 06:19 06:19 WBC 7.9 RBC 5.28 Hgb 15.7 Hct 45.4 MCV 86.0 MCH 29.8 MCHC 34.7 RDW 14.2 Plt Count 269 MPV 8.3 Sodium 141 Potassium 4.5 Chloride 105 Carbon Dioxide 23 Anion Gap 18 BUN 12 Creatinine 0.9 Est GFR ( Amer) > 60 Est GFR (Non-Af Amer) > 60 Random Glucose 75 Calcium 9.3 Attending/Attestation - Attestation I have personally seen and examined this patient.: Yes I have fully participated in the care of the patient.: Yes I have reviewed all pertinent clinical information: Yes Notes (Text): 12/19/17 16:12 Chart reviewed. Patient interviewed and examined. Discussed with pt's nurse. No events reported. Findings, assessment and recommendations, as above, discussed with Dr. Long.
[2017-12-19] MEDS: Enoxaparin 30 mg Syringe SC SCH (11:02)
[2017-12-19] MEDS: Divalproex 500 mg DR Tab PO SCH ×2 (11:03→18:46)
[2017-12-19] MEDS: cefTRIAXone 2 GM in Sodium Chloride 0.9% 100 ML IVPB SCH (11:03)
[2017-12-19] MEDS ORDERED: Pneumococcal 23-Valent Vaccine IM ONE (14:00)
[2017-12-19] MEDS ORDERED: Influenza Vaccine 60 MCG/0.5 ML SYR (3 yr & up) IM ONE (14:00)
--- NOTE | 2017-12-19 16:52 | CARD ---
APPROVED REPORT Date of service: 12/19/2017 EXAM: Two-dimensional and M-mode echocardiogram with Doppler and color Doppler. Other Information Quality : GoodRhythm : INDICATION R/O VEGETATION, HIV 2D DIMENSIONS IVSd1.5 (0.7-1.1cm)Aortic Root (2D)2.8 (2.0-3.7cm) LVDd2.8 (3.9-5.9cm)LVOT Diameter2.2 (1.8-2.4cm) PWd1.4 (0.7-1.1cm)LVDs2.2 (2.5-4.0cm) FS (%) 23.4 %LVEF (%)48.5 (>50%) M-Mode DIMENSIONS Left Atrium (MM)3.42 (2.5-4.0cm)Aortic Root2.77 (2.2-3.7cm) Aortic Cusp Exc.1.95 (1.5-2.0cm) Mitral Valve MV E Pvkuwpie74.5cm/sMV A Zatxdpcg02.1cm/sE/A ratio1.1 TDI Lateral E' Peak V14.03cm/sMedial E' Peak V10.80cm/sE/Lateral E'4.3 E/Medial E'5.6 Pulmonary Valve PV Peak Mvgvgokv26.7cm/sPV Peak Grad.3mmHg Tricuspid Valve TR Peak Ncmdvhzo505ee/sTR Peak Gr.[id number] LEFT VENTRICLE The left ventricle is normal size. There is normal left ventricular wall thickness. The left ventricular function is normal. The left ventricular ejection fraction is within the normal range. About 60% No regional wall motion abnormalities noted. The left ventricular diastolic function is normal. No left ventricle thrombus noted on this study. There is no ventricular septal defect visualized. There is no left ventricular aneurysm. There is no mass noted in the left ventricle. RIGHT VENTRICLE The right ventricle is normal size. There is normal right ventricular wall thickness. The right ventricular systolic function is normal. ATRIA The left atrium size is normal. The right atrium size is normal. The interatrial septum is intact with no evidence for an atrial septal defect. AORTIC VALVE The aortic valve is normal in structure and function. No aortic regurgitation is present. There is no aortic valvular stenosis. There is no aortic valvular vegetation. MITRAL VALVE The mitral valve is normal in structure and function. There is no evidence of mitral valve prolapse. There is no mitral valve stenosis. There is no mitral valve regurgitation noted. TRICUSPID VALVE The tricuspid valve is normal in structure and function. There is mild tricuspid valve regurgitation noted. There is no tricuspid valve prolapse or vegetation. There is no tricuspid valve stenosis. PULMONIC VALVE The pulmonary valve is normal in structure and function. There is no pulmonic valvular regurgitation. There is no pulmonic valvular stenosis. GREAT VESSELS The aortic root is normal in size. The ascending aorta is normal in size. The pulmonary artery is normal. The IVC is normal in size and collapses >50% with inspiration. PERICARDIAL EFFUSION A trivial pericardial effusion is noted adjacent to the right ventricle. There is no pleural effusion. <Conclusion> Normal left ventricular systolic function and wall motion Normal Doppler. A trivial pericardial effusion is noted adjacent to the right ventricle.
--- NOTE | 2017-12-20 03:21 | PN ---
DATE: 12/19/2017 SUBJECTIVE: The patient was seen and examined at bedside on 12/19/2017, looking comfortable, still having rectal pain. No fevers. No chills. No nausea, vomiting or diarrhea. No hematuria. No hematochezia. No headache, no dizziness. No chest pain or palpitations. According to the patient, he has regular bowel movements. PHYSICAL EXAMINATION: VITAL SIGNS: Temperature 97.7, pulse 57, respiratory rate 20, blood pressure 115/73, pulse oximetry 96%. HEENT: Head is normocephalic and atraumatic. Eyes PERRLA. Extraocular movements are intact. Conjunctivae clear. Nose patent. Mucous membranes are moist. NECK: Supple. No carotid bruits. No JVD or thyromegaly. CHEST: Bilaterally symmetrical. HEART: S1 and S2 positive. LUNGS: Clear to auscultation. ABDOMEN: Soft. Bowel sounds are positive. No hepatosplenomegaly. EXTREMITIES: No edema, no cyanosis. NEUROLOGIC: The patient is awake and alert. Moving all four extremities. No focal deficits. LABORATORY DATA: White blood cell 7.9, hemoglobin 15.7, hematocrit 45.4, platelets 259. Sodium 131, potassium 4.5, BUN 12, creatinine 0.9, glucose 75. ASSESSMENT AND PLAN: Mr. Rakesh Montero is a 27-year-old male with human immunodeficiency virus positive, not on highly active antiretroviral therapy, unknown CD4 very noncompliant, not using medication, came to the emergency room with rectal pain and diarrhea. Diarrhea is better. CT findings with anterior rectal proctitis and associated lymphadenopathy. Because of lymphadenopathy, Dr. Nguyễn was thinking about rule out malignancy, will call GI consult. According to GI, given the history and its factors, the most concerning would be infectious or opportunistic infection, however, does raise the concern of possibly osmotic select dietary components, given p.o. intake component and minimal nocturnal symptoms, though less likely. The patient has coagulase-negative staph bacteremia, three of the four bottles. As per suspected contamination per ID, the patient will need echo, initially positive, but not on highly active antiretroviral therapy making for CD4 count. Discussion done with the patient and nursing staff. GI is recommending a colonoscopy on Thursday. Clear liquid diet starting 12/20/2017. The patient declined rectal exam, to be done during endoscopy. GI and deep vein thrombosis prophylaxis, repeat labs. We will follow up. Ila Edwards MD DESHAWN
[2017-12-20] MEDS: Tmp-Smz 800 mg-160 mg DS Tab PO SCH ×2 (06:50→17:51)
--- NOTE | 2017-12-20 10:08 | CP.PCM.PN ---
<Harpreet Long - Last Filed: 12/20/17 10:05> Subjective - Date & Time of Evaluation Date of Evaluation: 12/20/17 Time of Evaluation: 08:15 - Subjective Subjective: PGY-4 GI Fellow Prog Note Pt lying in bed when seen this AM. Reports still with 2-3 loose yellow stools with burning sensation. Tolerating diet. 5 point ROS negative other than stated above Objective - Vital Signs/Intake and Output Vital Signs (last 24 hours): Temp Pulse Resp BP Pulse Ox 98.2 F 78 20 122/80 97 12/20/17 07:00 12/20/17 07:00 12/20/17 07:00 12/20/17 07:00 12/20/17 07:00 Intake and Output: 12/20/17 12/20/17 06:59 18:59 Intake Total 900 Balance 900 - Medications Medications: Current Medications Acetaminophen (Tylenol 325mg Tab) 650 mg PO Q4H PRN PRN Reason: pain fever Last Admin: 12/17/17 17:34 Dose: 650 mg Divalproex Sodium (Depakote Dr) 1,000 mg PO BID [facility] Last Admin: 12/19/17 18:46 Dose: 1,000 mg Doxycycline Hyclate (Doryx) 100 mg PO Q12H [facility]; Protocol Last Admin: 12/20/17 06:50 Dose: 100 mg Enoxaparin Sodium (Lovenox) 30 mg SC DAILY [facility] Last Admin: 12/19/17 11:02 Dose: 30 mg Famotidine (Pepcid) 40 mg PO DAILY [facility] Last Admin: 12/19/17 11:03 Dose: 40 mg Ceftriaxone Sodium 2 gm/ (Sodium Chloride) 100 mls @ 100 mls/hr IVPB DAILY [facility]; Protocol Last Admin: 12/19/17 11:03 Dose: 100 mls/hr Ondansetron HCl (Zofran Inj) 4 mg IVP Q6 PRN PRN Reason: Nausea/Vomiting Quetiapine Fumarate (Seroquel) 50 mg PO HS [facility] Last Admin: 12/19/17 22:38 Dose: 50 mg Trimethoprim/Sulfamethoxazole (Bactrim Ds Tab) 1 tab PO 0630,1830 [facility]; Protocol Last Admin: 12/20/17 06:50 Dose: 1 tab - Labs Labs: 12/19/17 06:19 12/19/17 06:19 - Constitutional Appears: Well, Non-toxic, No Acute Distress - Head Exam Head Exam: ATRAUMATIC, NORMAL INSPECTION - Eye Exam Eye Exam: EOMI, Normal appearance. absent: Scleral icterus - ENT Exam ENT Exam: Mucous Membranes Moist. absent: Mucous Membranes Dry, Normal External Ear Exam - Respiratory Exam Respiratory Exam: NORMAL BREATHING PATTERN. absent: Accessory Muscle Use, Respiratory Distress - GI/Abdominal Exam GI & Abdominal Exam: Normal Bowel Sounds. absent: Bruit, Distended, Firm, Guarding, Rigid, Soft, Tenderness, Mass, Organomegaly, Pulsatile Mass, Rebound Assessment and Plan - Assessment and Plan (Free Text) Assessment: 27 yo Hisp Male with HIV (not on HAART, unknown CD4) presenting with rectal pain and diarrhea. # Rectal Pain, Acute Diarrhea: CT findings with inferior rectal proctitic and associated lymphadenopathy. Recent onset of diarrhea in last 30 days. Given history and risk factors, most concerning would be infectious/opportunistic infections; however, does raise concerns of possible osmotic/dietary component given worse PO intake component and minimal nocturnal symptoms, though less likely/urgent. # Coag Neg Staph bacteremia: 3/4 bottles, per notes suspected to be contaminate, Echo pending and ID following # HIV: Not on HAART, CD4 count pending. ID following. Plan: - Cdiff, Stool Cx and O&P pending - Antibiotics per ID - Plan for Colonoscopy +/- EGD early this week pending endoscopy availability - Clear Liq Diet - Pt declined rectal exam, to be done during endoscopy Thank you for the consult; will cont to follow. Pt discussed with Dr. Grewal. See attestation for further recs/changes. <Jonh Grewal - Last Filed: 12/20/17 13:45> Objective - Vital Signs/Intake and Output Vital Signs (last 24 hours): Temp Pulse Resp BP Pulse Ox 98.2 F 78 20 122/80 97 12/20/17 07:00 12/20/17 07:00 12/20/17 07:00 12/20/17 07:00 12/20/17 07:00 Intake and Output: 12/20/17 12/20/17 06:59 18:59 Intake Total 900 Balance 900 - Medications Medications: Current Medications Acetaminophen (Tylenol 325mg Tab) 650 mg PO Q4H PRN PRN Reason: pain fever Last Admin: 12/17/17 17:34 Dose: 650 mg Divalproex Sodium (Depakote Dr) 1,000 mg PO BID [facility] Last Admin: 12/20/17 10:20 Dose: 1,000 mg Doxycycline Hyclate (Doryx) 100 mg PO Q12H [facility]; Protocol Last Admin: 12/20/17 06:50 Dose: 100 mg Enoxaparin Sodium (Lovenox) 30 mg SC DAILY [facility] Last Admin: 12/20/17 10:20 Dose: 30 mg Famotidine (Pepcid) 40 mg PO DAILY [facility] Last Admin: 12/20/17 10:20 Dose: 40 mg Ceftriaxone Sodium 2 gm/ (Sodium Chloride) 100 mls @ 100 mls/hr IVPB DAILY [facility]; Protocol Last Admin: 12/20/17 10:15 Dose: 100 mls/hr Ondansetron HCl (Zofran Inj) 4 mg IVP Q6 PRN PRN Reason: Nausea/Vomiting Quetiapine Fumarate (Seroquel) 50 mg PO HS [facility] Last Admin: 12/19/17 22:38 Dose: 50 mg Trimethoprim/Sulfamethoxazole (Bactrim Ds Tab) 1 tab PO 0630,1830 [facility]; Protocol Last Admin: 12/20/17 06:50 Dose: 1 tab - Labs Labs: 12/19/17 06:19 12/19/17 06:19 Attending/Attestation - Attestation I have personally seen and examined this patient.: Yes I have fully participated in the care of the patient.: Yes I have reviewed all pertinent clinical information, including history, physical exam and plan: Yes Notes (Text): 12/20/17 13:43 Chart reviewed. The patient was seen and examined. Assessment and recommendations were discussed with Dr. Long and documented above.
[2017-12-20] MEDS: cefTRIAXone 2 GM in Sodium Chloride 0.9% 100 ML IVPB SCH (10:15)
[2017-12-20] MEDS: Enoxaparin 30 mg Syringe SC SCH (10:20)
[2017-12-20] MEDS: Divalproex 500 mg DR Tab PO SCH ×2 (10:20→17:50)
--- NOTE | 2017-12-20 14:46 | CP.PCM.PN ---
Subjective - Date & Time of Evaluation Date of Evaluation: 12/20/17 Time of Evaluation: 08:00 - Subjective Subjective: repeat blood c/s neg echo pending GI eval in progress Objective - Vital Signs/Intake and Output Vital Signs (last 24 hours): Temp Pulse Resp BP Pulse Ox 98.2 F 78 20 122/80 97 12/20/17 07:00 12/20/17 07:00 12/20/17 07:00 12/20/17 07:00 12/20/17 07:00 Intake and Output: 12/20/17 12/20/17 06:59 18:59 Intake Total 900 Balance 900 - Medications Medications: Current Medications Acetaminophen (Tylenol 325mg Tab) 650 mg PO Q4H PRN PRN Reason: pain fever Last Admin: 12/17/17 17:34 Dose: 650 mg Divalproex Sodium (Depakote Dr) 1,000 mg PO BID [facility] Last Admin: 12/20/17 10:20 Dose: 1,000 mg Doxycycline Hyclate (Doryx) 100 mg PO Q12H [facility]; Protocol Last Admin: 12/20/17 06:50 Dose: 100 mg Enoxaparin Sodium (Lovenox) 30 mg SC DAILY [facility] Last Admin: 12/20/17 10:20 Dose: 30 mg Famotidine (Pepcid) 40 mg PO DAILY [facility] Last Admin: 12/20/17 10:20 Dose: 40 mg Ceftriaxone Sodium 2 gm/ (Sodium Chloride) 100 mls @ 100 mls/hr IVPB DAILY [facility]; Protocol Last Admin: 12/20/17 10:15 Dose: 100 mls/hr Ondansetron HCl (Zofran Inj) 4 mg IVP Q6 PRN PRN Reason: Nausea/Vomiting Quetiapine Fumarate (Seroquel) 50 mg PO HS [facility] Last Admin: 12/19/17 22:38 Dose: 50 mg Trimethoprim/Sulfamethoxazole (Bactrim Ds Tab) 1 tab PO 0630,1830 [facility]; Protocol Last Admin: 12/20/17 06:50 Dose: 1 tab - Labs Labs: 12/19/17 06:19 12/19/17 06:19 - Constitutional Appears: Non-toxic, Chronically Ill - Head Exam Head Exam: NORMOCEPHALIC - Eye Exam Eye Exam: PERRL - ENT Exam ENT Exam: Mucous Membranes Dry - Neck Exam Neck Exam: absent: Lymphadenopathy - Respiratory Exam Respiratory Exam: Decreased Breath Sounds - Cardiovascular Exam Cardiovascular Exam: REGULAR RHYTHM - GI/Abdominal Exam GI & Abdominal Exam: Distended, Soft - Rectal Exam Rectal Exam: Deferred - Exam Exam: NORMAL INSPECTION Assessment and Plan (1) Proctitis Status: Acute (2) Manic bipolar I disorder Status: Acute - Assessment and Plan (Free Text) Assessment: cont iv rx
--- NOTE | 2017-12-21 01:53 | PN ---
DATE: 12/20/2017 SUBJECTIVE: The patient was seen and examined at the beside. No change in status, looking comfortable. Has two to three bowel movements with burning sensation. Tolerated food very well. GI is on the case. No fever. No chills. No headache or dizziness. PHYSICAL EXAMINATION: VITAL SIGNS: Temperature 96.2, pulse 78, respiratory rate 20, blood pressure 122/80 and pulse oximetry 97. HEENT: Head normocephalic and atraumatic. Eyes, PERRLA. Extraocular muscles intact. Conjunctivae clear. Nose patent. Mucous membranes moist. NECK: Supple. No carotid bruits. No JVD or thyromegaly. CHEST: Bilaterally symmetrical. HEART: S1 and S2 positive. LUNGS: Clear to auscultation. ABDOMEN: Soft. Bowel sounds present. No organomegaly. EXTREMITIES: No edema. No cyanosis. NEUROLOGIC: The patient is awake and alert. Moving all 4 extremities. No focal deficits. MEDICATIONS: Tylenol, Depakote, doxycycline, Lovenox, Pepcid, Zofran, Seroquel and Bactrim. LABORATORY DATA: We do not have labs today, but I reviewed old labs. ASSESSMENT AND PLAN: Mr. Rakesh Acevedo with human immunodeficiency virus, not on highly active antiretroviral therapy, unknown CD4 count, came with rectal pain and diarrhea and has acute diarrhea. CAT scan proved rectal proctitis associated with lymphadenopathy. GI is on the case. C. difficile toxin, ova and parasite pending. Antibiotics, the patient is getting. According to GI, the patient is going for colonoscopy. The patient declined rectal exam to GI, seen by Dr. Nguyễn, Infectious Disease, according to him, repeat blood culture is negative. History of manic bipolar 1 disorder. Continue antibiotics. We will call Cardiology consult to make sure that the patient do not have endocarditis . Echocardiography is pending. Ila Edwards MD MTDAimee
[2017-12-21] MEDS: Tmp-Smz 800 mg-160 mg DS Tab PO SCH ×2 (06:38→17:45)
[2017-12-21] MEDS: Divalproex 500 mg DR Tab PO SCH ×2 (10:17→17:45)
[2017-12-21] MEDS: Emtricitabine-Tenofovir 200 mg-300 mg Tab PO SCH (10:18)
[2017-12-21] MEDS: Enoxaparin 30 mg Syringe SC SCH (10:19)
[2017-12-21] MEDS: cefTRIAXone 2 GM in Sodium Chloride 0.9% 100 ML IVPB SCH (10:20)
--- NOTE | 2017-12-21 13:31 | CP.PCM.PN ---
<Pablo Ramirez - Last Filed: 12/21/17 17:10> Subjective - Date & Time of Evaluation Date of Evaluation: 12/21/17 Time of Evaluation: 12:40 - Subjective Subjective: PGY6 GI Fellow Progress Note Patient seen and examined bedside this afternoon. The patient states that he is feeling better today with fewer episodes of diarrhea. Also states that stool is more formed and he is having less rectal pain. Patient is eager to eat and a mbulate. No fever/chills. No nausea/vomiting. Of note, patient states that just prior to onset of diarrhea, he describes the development and resolution of an erythematous rash on the anterior surface of both legs. Moreover, he admits to sexual activity with both men and women, including receptive intercourse in the last 6-8 months. 12 system ROS performed and negative except where stated. Objective - Vital Signs/Intake and Output Vital Signs (last 24 hours): Temp Pulse Resp BP Pulse Ox 98.0 F 76 20 107/67 97 12/21/17 07:00 12/21/17 07:00 12/21/17 07:00 12/21/17 07:00 12/21/17 07:00 Intake and Output: 12/21/17 12/21/17 06:59 18:59 Intake Total 800 Balance 800 - Medications Medications: Current Medications Acetaminophen (Tylenol 325mg Tab) 650 mg PO Q4H PRN PRN Reason: pain fever Last Admin: 12/17/17 17:34 Dose: 650 mg Divalproex Sodium (Depakote Dr) 1,000 mg PO BID [facility] Last Admin: 12/21/17 10:17 Dose: 1,000 mg Dolutegravir Sodium (Tivicay) 50 mg PO DAILY [facility]; Protocol Last Admin: 12/21/17 10:18 Dose: 50 mg Doxycycline Hyclate (Doryx) 100 mg PO Q12H [facility]; Protocol Last Admin: 12/21/17 06:38 Dose: 100 mg Emtricitabine/Tenofovir (Truvada 200 Mg-300 Mg) 1 tab PO DAILY [facility]; Protocol Last Admin: 12/21/17 10:18 Dose: 1 tab Enoxaparin Sodium (Lovenox) 30 mg SC DAILY [facility] Last Admin: 12/21/17 10:19 Dose: 30 mg Famotidine (Pepcid) 40 mg PO DAILY [facility] Last Admin: 12/21/17 10:18 Dose: 40 mg Ceftriaxone Sodium 2 gm/ (Sodium Chloride) 100 mls @ 100 mls/hr IVPB DAILY [facility]; Protocol Last Admin: 12/21/17 10:20 Dose: 100 mls/hr Ondansetron HCl (Zofran Inj) 4 mg IVP Q6 PRN PRN Reason: Nausea/Vomiting Last Admin: 12/21/17 10:19 Dose: 4 mg Quetiapine Fumarate (Seroquel) 50 mg PO HS [facility] Last Admin: 12/20/17 21:22 Dose: 50 mg Trimethoprim/Sulfamethoxazole (Bactrim Ds Tab) 1 tab PO 0630,1830 [facility]; Protocol Last Admin: 12/21/17 06:38 Dose: 1 tab - Labs Labs: 12/19/17 06:19 12/19/17 06:19 - Constitutional Appears: Non-toxic, No Acute Distress - Eye Exam Eye Exam: EOMI, PERRL - ENT Exam ENT Exam: Mucous Membranes Moist - Respiratory Exam Respiratory Exam: Clear to Ausculation Bilateral. absent: Rales, Rhonchi, Wheez es - Cardiovascular Exam Cardiovascular Exam: RRR, +S1, +S2 - GI/Abdominal Exam GI & Abdominal Exam: Soft, Normal Bowel Sounds. absent: Distended, Firm, Guarding, Rigid, Tenderness, Organomegaly - Extremities Exam Extremities Exam: Normal Inspection. absent: Pedal Edema - Neurological Exam Neurological Exam: Alert, Awake, Oriented x3 - Psychiatric Exam Psychiatric exam: Normal Affect, Normal Mood - Skin Skin Exam: Dry, Warm Assessment and Plan - Assessment and Plan (Free Text) Assessment: Patient is a 27yo male with PMHx significant for HIV not previously on HAART therapy, bipolar d/o, prior incarceration who presented to the hospital with abdominal/rectal pain and diarrhea. -Acute proctitis -HIV, unknown CD4 Plan: -Stool culture, O&P pending -C diff negative -Added cultures for cyclospora/isospora and cryptosporidium today -Recommend consideration of rectal swab for Chlamydia given MSM history and HIV status - current process could represent LGV proctitis -Patient on empiric therapy with Doxycycline, Ceftriaxone and Bactrim -ID following -As symptoms improving, would hold off on endoscopic intervention for now - however if symptoms worsen would consider colonoscopy with R/O HSV/CMV -Diet advanced, advance to regular as tolerated <Earle Ambrocio - Last Filed: 12/21/17 17:22> Objective - Vital Signs/Intake and Output Vital Signs (last 24 hours): Temp Pulse Resp BP Pulse Ox 98.2 F 94 H 20 108/73 95 12/21/17 15:00 12/21/17 15:00 12/21/17 15:00 12/21/17 15:00 12/21/17 15:00 Intake and Output: 12/21/17 12/21/17 06:59 18:59 Intake Total 800 360 Balance 800 360 - Medications Medications: Current Medications Acetaminophen (Tylenol 325mg Tab) 650 mg PO Q4H PRN PRN Reason: pain fever Last Admin: 12/17/17 17:34 Dose: 650 mg Divalproex Sodium (Depakote Dr) 1,000 mg PO BID [facility] Last Admin: 12/21/17 10:17 Dose: 1,000 mg Dolutegravir Sodium (Tivicay) 50 mg PO DAILY [facility]; Protocol Last Admin: 12/21/17 10:18 Dose: 50 mg Doxycycline Hyclate (Doryx) 100 mg PO Q12H [facility]; Protocol Last Admin: 12/21/17 06:38 Dose: 100 mg Emtricitabine/Tenofovir (Truvada 200 Mg-300 Mg) 1 tab PO DAILY [facility]; Protocol Last Admin: 12/21/17 10:18 Dose: 1 tab Enoxaparin Sodium (Lovenox) 30 mg SC DAILY [facility] Last Admin: 12/21/17 10:19 Dose: 30 mg Famotidine (Pepcid) 40 mg PO DAILY [facility] Last Admin: 12/21/17 10:18 Dose: 40 mg Ceftriaxone Sodium 2 gm/ (Sodium Chloride) 100 mls @ 100 mls/hr IVPB DAILY [facility]; Protocol Last Admin: 12/21/17 10:20 Dose: 100 mls/hr Ondansetron HCl (Zofran Inj) 4 mg IVP Q6 PRN PRN Reason: Nausea/Vomiting Last Admin: 12/21/17 10:19 Dose: 4 mg Quetiapine Fumarate (Seroquel) 50 mg PO HS [facility] Last Admin: 12/20/17 21:22 Dose: 50 mg Trimethoprim/Sulfamethoxazole (Bactrim Ds Tab) 1 tab PO 0630,1830 [facility]; Protocol Last Admin: 12/21/17 06:38 Dose: 1 tab - Labs Labs: 12/19/17 06:19 12/19/17 06:19 Attending/Attestation - Attestation I have personally seen and examined this patient.: Yes I have fully participated in the care of the patient.: Yes I have reviewed all pertinent clinical information, including history, physical exam and plan: Yes Notes (Text): 12/21/17 17:19 I have seen and examined patient with GI fellow. No acute events overnight, he is seen resting comfortably in bed. He had 1 bowel movement today, more formed than previously associated with slight burning during defecation. He denies nausea, vomiting, fever/chills. Tolerating PO liquids without difficulty. HIV Bipolar disorder Abdominal pain, diarrhea - acute proctitis - Advance diet as tolerated - Continue with antibiotic and HAART therapy as per ID - Awaiting stool studies - Safe sexual practices counseling - Given improvement in patient clinical symptoms, no further planned GI interven tion at this time, will sign off case. Consider rectal swab for LGV evaluation, though patient already on antibiotic therapy, will defer to ID. Please reconsult as necessary, thank you.
[2017-12-22] MEDS: Tmp-Smz 800 mg-160 mg DS Tab PO SCH ×2 (05:30→18:15)
[2017-12-22 06:31] LABS: BASO # 0.1 K/uL (0.0-0.2); BASO % 0.8 % (0.0-2.0); EOS # 0.2 K/uL (0.0-0.7); EOS % 2.6 % (0.0-4.0); LYMPH # 3.4 K/uL (1.0-4.3); LYMPH % 45.4 % (20.0-40.0); MEAN CELL VOLUME 85.2 fL (80.0-94.0); MEAN CORPUSCULAR HEMOGLOBIN 29.3 pg (27.0-31.0); MEAN CORPUSCULAR HGB CONC 34.3 g/dL (33.0-37.0); MEAN PLATELET VOLUME 8.6 fL (7.2-11.7); MONO % 13.9 % (0.0-10.0); NEUT # 2.8 K/uL (1.8-7.0); NEUT % 37.3 % (50.0-75.0); NRBC % 0.7 % (0.0-2.0); RBC 5.46 Mil/uL (4.40-5.90); RED CELL DISTRIBUTION WIDTH 13.9 % (11.5-14.5); WHITE BLOOD COUNT 7.5 K/uL (4.8-10.8)
[2017-12-22 07:45] LABS: BLOOD UREA NITROGEN 18 mg/dL (9-20); CALCIUM 9.5 mg/dl (8.6-10.4); GFR NON-AFRICAN AMERICAN > 60
[2017-12-22] MEDS: Enoxaparin 30 mg Syringe SC SCH (10:18)
[2017-12-22] MEDS: Divalproex 500 mg DR Tab PO SCH ×2 (10:19→18:15)
[2017-12-22] MEDS: cefTRIAXone 2 GM in Sodium Chloride 0.9% 100 ML IVPB SCH (10:20)
[2017-12-22] MEDS: Emtricitabine-Tenofovir 200 mg-300 mg Tab PO SCH (10:20)
[2017-12-22 11:51] LABS: % CD4 (T HELPER CELL) 6 Percent (30-61); % CD8 (SUPPRESSOR T CELL) 82 Percent (12-42); ABSOLUTE CD4 CELLS 196 Cells/mcL (490-1740); ABSOLUTE CD8 CELLS 2586 Cells/mcL (180-1170); ABSOLUTE LYMPHOCYTES 3150 Cells/mcL (850-3900); HELPER/SUPPRESSOR RATIO 0.08 Ratio (0.86-5.00)
--- NOTE | 2017-12-22 12:50 | CP.PCM.PN ---
Subjective - Date & Time of Evaluation Date of Evaluation: 12/22/17 Time of Evaluation: 06:00 - Subjective Subjective: feels better Objective - Vital Signs/Intake and Output Vital Signs (last 24 hours): Temp Pulse Resp BP Pulse Ox 98.1 F 79 20 112/74 98 12/22/17 07:00 12/22/17 07:00 12/22/17 07:00 12/22/17 07:00 12/22/17 07:00 - Medications Medications: Current Medications Acetaminophen (Tylenol 325mg Tab) 650 mg PO Q4H PRN PRN Reason: pain fever Last Admin: 12/17/17 17:34 Dose: 650 mg Divalproex Sodium (Depakote Dr) 1,000 mg PO BID [facility] Last Admin: 12/22/17 10:19 Dose: 1,000 mg Dolutegravir Sodium (Tivicay) 50 mg PO DAILY [facility]; Protocol Last Admin: 12/22/17 10:19 Dose: 50 mg Doxycycline Hyclate (Doryx) 100 mg PO Q12H [facility]; Protocol Last Admin: 12/22/17 06:12 Dose: 100 mg Emtricitabine/Tenofovir (Truvada 200 Mg-300 Mg) 1 tab PO DAILY [facility]; Protocol Last Admin: 12/22/17 10:20 Dose: 1 tab Enoxaparin Sodium (Lovenox) 30 mg SC DAILY [facility] Last Admin: 12/22/17 10:18 Dose: 30 mg Famotidine (Pepcid) 40 mg PO DAILY [facility] Last Admin: 12/22/17 10:19 Dose: 40 mg Ceftriaxone Sodium 2 gm/ (Sodium Chloride) 100 mls @ 100 mls/hr IVPB DAILY [facility]; Protocol Last Admin: 12/22/17 10:20 Dose: 100 mls/hr Ondansetron HCl (Zofran Inj) 4 mg IVP Q6 PRN PRN Reason: Nausea/Vomiting Last Admin: 12/21/17 10:19 Dose: 4 mg Quetiapine Fumarate (Seroquel) 50 mg PO HS [facility] Last Admin: 12/21/17 21:31 Dose: 50 mg Trimethoprim/Sulfamethoxazole (Bactrim Ds Tab) 1 tab PO 0630,1830 [facility]; Protocol Last Admin: 12/22/17 05:30 Dose: 1 tab - Labs Labs: 12/22/17 06:23 12/22/17 06:23 - Constitutional Appears: Non-toxic, Chronically Ill - Head Exam Head Exam: NORMOCEPHALIC - Eye Exam Eye Exam: absent: Scleral icterus - ENT Exam ENT Exam: Mucous Membranes Dry - Neck Exam Neck Exam: absent: Lymphadenopathy - Respiratory Exam Respiratory Exam: Decreased Breath Sounds - Cardiovascular Exam Cardiovascular Exam: REGULAR RHYTHM - GI/Abdominal Exam GI & Abdominal Exam: Distended - Rectal Exam Rectal Exam: Deferred - Exam Exam: NORMAL INSPECTION - Extremities Exam Extremities Exam: absent: Pedal Edema - Back Exam Back Exam: absent: CVA tenderness (L), CVA tenderness (R) - Neurological Exam Neurological Exam: Alert, Awake, Oriented x3 - Psychiatric Exam Psychiatric exam: Normal Mood - Skin Skin Exam: Dry Assessment and Plan (1) Proctitis Status: Acute (2) Manic bipolar I disorder Status: Acute - Assessment and Plan (Free Text) Assessment: HIV/ AIDS CD4 196 started on HAART, Bactrim Bipolar disorder will need psych follow up Abdominal pain, diarrhea - acute proctitis traeated with IV rx syphilis / GC / chlamydia neg
--- NOTE | 2017-12-22 13:06 | CP.PCM.PN ---
<Asael Brewer - Last Filed: 12/22/17 17:20> Subjective - Date & Time of Evaluation Date of Evaluation: 12/22/17 Time of Evaluation: 13:35 - Subjective Subjective: Cardiology Progress Note Patient seen and examined at bedside. No acute events reported overnight. Patient is resting in bed comfortably. Patient denies having fever, chills, shortness of breath, chest pain, nausea, or vomiting. He further denies having family history of cardiovascular diseases. Objective - Vital Signs/Intake and Output Vital Signs (last 24 hours): Temp Pulse Resp BP Pulse Ox 98.1 F 79 20 112/74 98 12/22/17 07:00 12/22/17 07:00 12/22/17 07:00 12/22/17 07:00 12/22/17 07:00 - Medications Medications: Current Medications Acetaminophen (Tylenol 325mg Tab) 650 mg PO Q4H PRN PRN Reason: pain fever Last Admin: 12/17/17 17:34 Dose: 650 mg Divalproex Sodium (Depakote Dr) 1,000 mg PO BID [facility] Last Admin: 12/22/17 10:19 Dose: 1,000 mg Dolutegravir Sodium (Tivicay) 50 mg PO DAILY [facility]; Protocol Last Admin: 12/22/17 10:19 Dose: 50 mg Doxycycline Hyclate (Doryx) 100 mg PO Q12H [facility]; Protocol Last Admin: 12/22/17 06:12 Dose: 100 mg Emtricitabine/Tenofovir (Truvada 200 Mg-300 Mg) 1 tab PO DAILY [facility]; Protocol Last Admin: 12/22/17 10:20 Dose: 1 tab Enoxaparin Sodium (Lovenox) 30 mg SC DAILY [facility] Last Admin: 12/22/17 10:18 Dose: 30 mg Famotidine (Pepcid) 40 mg PO DAILY [facility] Last Admin: 12/22/17 10:19 Dose: 40 mg Ceftriaxone Sodium 2 gm/ (Sodium Chloride) 100 mls @ 100 mls/hr IVPB DAILY [facility]; Protocol Last Admin: 12/22/17 10:20 Dose: 100 mls/hr Ondansetron HCl (Zofran Inj) 4 mg IVP Q6 PRN PRN Reason: Nausea/Vomiting Last Admin: 12/21/17 10:19 Dose: 4 mg Quetiapine Fumarate (Seroquel) 50 mg PO HS [facility]PL[facility] Last Admin: 12/21/17 21:31 Dose: 50 mg Trimethoprim/Sulfamethoxazole (Bactrim Ds Tab) 1 tab PO 0630,1830 [facility]; Protocol Last Admin: 12/22/17 05:30 Dose: 1 tab - Labs Labs: 12/22/17 06:23 12/22/17 06:23 - Additional Findings Additional findings: - Constitutional Appears: Non-toxic, No Acute Distress - Eye Exam Eye Exam: EOMI, PERRL - ENT Exam ENT Exam: Mucous Membranes Moist - Respiratory Exam Respiratory Exam: Clear to Ausculation Bilateral. absent: Rales, Rhonchi, Wheezes - Cardiovascular Exam Cardiovascular Exam: RRR, +S1, +S2 - GI/Abdominal Exam GI & Abdominal Exam: Soft, Normal Bowel Sounds. absent: Distended, Firm, Guarding, Rigid, Tenderness, Organomegaly - Extremities Exam Extremities Exam: Normal Inspection. absent: Pedal Edema - Neurological Exam Neurological Exam: Alert, Awake, Oriented x3 - Psychiatric Exam Psychiatric exam: Normal Affect, Normal Mood - Skin Skin Exam: Dry, Warm Assessment and Plan - Assessment and Plan (Free Text) Assessment: History of HIV -Echocardiogram shows normal left ventricular systolic function and wall motion -Repeat Blood culture negative for organism -Afebrile, no leukocytosis -KAT not indicated at this time Case discussed with attending Dr. Whiting <Tate Whiting - Last Filed: 12/23/17 00:17> Objective - Vital Signs/Intake and Output Vital Signs (last 24 hours): Temp Pulse Resp BP Pulse Ox 98.1 F 82 20 105/69 96 12/22/17 15:00 12/22/17 15:00 12/22/17 15:00 12/22/17 15:00 12/22/17 15:00 Intake and Output: 12/22/17 12/23/17 18:59 06:59 Intake Total 720 Balance 720 - Medications Medications: Current Medications Acetaminophen (Tylenol 325mg Tab) 650 mg PO Q4H PRN PRN Reason: pain fever Last Admin: 12/17/17 17:34 Dose: 650 mg Divalproex Sodium (Depakote Dr) 1,000 mg PO BID [facility] Last Admin: 12/22/17 18:15 Dose: 1,000 mg Dolutegravir Sodium (Tivicay) 50 mg PO DAILY [facility]; Protocol Last Admin: 12/22/17 10:19 Dose: 50 mg Doxycycline Hyclate (Doryx) 100 mg PO Q12H [facility]; Protocol Last Admin: 12/22/17 18:16 Dose: 100 mg Emtricitabine/Tenofovir (Truvada 200 Mg-300 Mg) 1 tab PO DAILY [facility]; Protocol Last Admin: 12/22/17 10:20 Dose: 1 tab Enoxaparin Sodium (Lovenox) 30 mg SC DAILY [facility] Last Admin: 12/22/17 10:18 Dose: 30 mg Famotidine (Pepcid) 40 mg PO DAILY [facility] Last Admin: 12/22/17 10:19 Dose: 40 mg Ceftriaxone Sodium 2 gm/ (Sodium Chloride) 100 mls @ 100 mls/hr IVPB DAILY [facility]; Protocol Last Admin: 12/22/17 10:20 Dose: 100 mls/hr Ondansetron HCl (Zofran Inj) 4 mg IVP Q6 PRN PRN Reason: Nausea/Vomiting Last Admin: 12/21/17 10:19 Dose: 4 mg Quetiapine Fumarate (Seroquel) 50 mg PO HS [facility] Last Admin: 12/22/17 21:23 Dose: 50 mg Trimethoprim/Sulfamethoxazole (Bactrim Ds Tab) 1 tab PO 0630,1830 [facility]; Protocol Last Admin: 12/22/17 18:15 Dose: 1 tab - Labs Labs: 12/22/17 06:23 12/22/17 06:23 Assessment and Plan - Assessment and Plan (Free Text) Plan: Patient seen and evaluated personally by me Plan of care d/w the medical claims analyst and as documented I will sign off for now Please re consult if needed Thank you
[2017-12-22 17:38] LABS: SOURCE STOOL
--- NOTE | 2017-12-23 04:27 | PN ---
DATE: 12/21/2017SUBJECTIVE: The patient is a 27-year-old male. The patient was seen and examined [place] [facility]. Looking comfortable. He is feeling better with fewer episodes of diarrhea. Stool is more firm and having less rectal pain. No fever. No chills. He has rash in between the legs also. REVIEW OF SYSTEMS: A 12-point review of systems performed and negative except for stated above. PHYSICAL EXAMINATION: VITALS: Temperature 98, pulse 76, respiratory rate 20, blood pressure 107/67, and pulse oximetry 97. HEENT: Head, normocephalic and atraumatic. Eyes, PERRLA. Extraocular movements intact. Conjunctivae clear. Nose patent. Mucous membranes moist. NECK: Supple. No carotid bruits, JVD, or thyromegaly. CHEST: Bilaterally symmetrical. HEART: S1, S2 positive. LUNGS: Clear to auscultation. ABDOMEN: Soft. Bowel sounds are present. No organomegaly. EXTREMITIES: No edema. No cyanosis. NEUROLOGICAL: The patient is awake, alert, moving all four extremities. No focal deficits. MEDICATIONS: Tylenol, Depakote, HIV medication, doxycycline, Lovenox, and Pepcid. LABORATORY DATA: We do not have recent labs today, but I reviewed old labs. ASSESSMENT AND PLAN: Mr. Rakesh Acevedo is a 27-year-old male with human immunodeficiency virus positive, noncompliant with medication, not previously on highly active antiretroviral therapy, bipolar, history of incarceration, came with abdomen and rectal pain and diarrhea, came to know the patient had acute proctitis, human immunodeficiency virus unknown CD4 at that time. Stool culture for ova and parasites, and Clostridium difficile is negative. Gastrointestinal added more parasites in the stool. Recommended consideration for rectal swab for Chlamydia. The patient is on empirical therapy with doxycycline, ceftriaxone, and Bactrim. Infectious Disease in on the case. Diet, advance as tolerated. We will follow up. Ila Edwards MD
[2017-12-23] MEDS: Tmp-Smz 800 mg-160 mg DS Tab PO SCH (06:20)
[2017-12-23 08:14] VITALS: BP 111/75; PULSE 87; RESP 20; TEMP 98.2; O2SAT 97
--- NOTE | 2017-12-23 08:34 | PN ---
DATE: 12/22/2017 SUBJECTIVE: The patient is a 27-year-old male. The patient was seen and examined at the bedside on 12/22/2017. Looking comfortable. No fever. No chills. Feels better. No nausea, vomiting or diarrhea. No hematuria or hematochezia. No swelling of the legs. No chest pain. No palpitation. No headache. No dizziness. PHYSICAL EXAMINATION: VITAL SIGNS: Temperature 98.1, pulse 79, respirations 20, blood pressure 112/74, pulse oximetry 98. HEENT: Head is normocephalic and atraumatic. Eyes, PERRLA. Extraocular movements intact. Conjunctivae clear. Nose patent. Mucous membranes moist. NECK: Supple. No carotid bruit, JVD, or thyromegaly. CHEST: Bilaterally symmetrical. HEART: S1 and S2 positive. LUNGS: Clear to auscultation. ABDOMEN: Soft. Bowel sounds present. No organomegaly. EXTREMITIES: No edema. No cyanosis. NEUROLOGIC: The patient is awake and alert. Moving all four extremities. No focal deficit. MEDICATIONS: Tylenol, Depakote, Tivicay, doxycycline, Truvada, Lovenox, Pepcid, NS, Zofran, Seroquel, Bactrim. LABORATORY DATA: White blood cells 7.5, hemoglobin 16, hematocrit 46.5, platelets 259. Sodium 140, potassium 5.1, BUN 18, creatinine 1, glucose 84. ASSESSMENT AND PLAN: The patient is a 27-year-old male, came with proctitis, manic bipolar disorder. Infectious Disease, Dr. Nguyễn, is on the case. Human immunodeficiency virus/acquired immunodeficiency syndrome, CD4 count noted . He is started on highly active antiretroviral therapy medication and Bactrim. Bipolar disorder, the patient needs followups of psychiatrist as outpatient. Abdominal pain, diarrhea, acute proctitis, treated with intravenous antibiotics. Syphilis, GC, Chlamydia negative. Seen by Dr. Shravan Nguyễn; Gastroenterology, Dr. Earle Ambrocio. Has prior incarcerations. Stool cultures, ova and parasites are still pending. Clostridium difficile toxin colitis is negative. Dr. Earle Ambrocio added in the culture, Cyclospora, Isospora and Cryptosporidium today. Recommending consideration of rectal swab for Chlamydia given and human immunodeficiency virus positive. The patient is on empiric therapy with doxycycline, ceftriaxone, and Bactrim. Discharge plan will depend on Infectious Disease and Gastroenterology. Advance diet up to regular as tolerated. We will follow up. Ila Edwards MD MTDAimee
[2017-12-23] MEDS: Divalproex 500 mg DR Tab PO SCH (10:23)
[2017-12-23] MEDS: Enoxaparin 30 mg Syringe SC SCH (10:23)
[2017-12-23] MEDS: Emtricitabine-Tenofovir 200 mg-300 mg Tab PO SCH (10:23)
[2017-12-23] MEDS ORDERED: Tmp-Smz 800 mg-160 mg DS Tab PO SCH (10:45)
--- NOTE | 2017-12-23 11:57 | CP.PCM.PN ---
Subjective - Date & Time of Evaluation Date of Evaluation: 12/23/17 Time of Evaluation: 11:57 - Subjective Subjective: -FOLLOW UP WITH DR. MILLER (INFECTION AND HIV DOCTOR) IN THE OFFICE WITHIN 1-2 WEEKS---CALL THE OFFICE FOR AN APPOINTMENT. MAKE SURE YOU SEE DR. MILLER IN THE OFFICE FOR HIV MEDICATION REFILLS (FOR BACTRIM YOU WILL NEED TO TAKE THIS FOR 6 MONTHS AND HE WILL GIVE YOU REFILL PRESCRIPTIONS; HE WILL ALSO REFILL YOUR TIVICAY AND TRUVADA). DR. MILLER'S OFFICE WILL ALSO FOLLOW UP WITH YOUR BLOOD WORK TO CHECK YOUR CD 4 COUNT. -FOLLOW UP WITH DR. BHATIA (LAB CLERK DOCTOR) IN THE OFFICE WITHIN 1 WEEK. -THE DOSES FOR YOU SEROQUEL AND DEPAKOTE HAVE BEEN CHANGED---STOP TAKING YOUR MEDICATION DOSES AT HOME. TAKE ONLY THE NEW PRESCRIPTIONS. -NEW PRESCRIPTIONS INCLUDE: 1) DEPAKOTE 1,000 MG (YOU WILL BE GIVEN 500 MG TABLETS)---TAKE 2 TABLETS BY MOUTH TWICE A DAY (MORNING AND EVENING). 2) SEROQUEL 50 MG---TAKE 1 TABLET BY MOUTH AT BEDTIME. 3) BACTRIM DS 800/160 MG (THIS NEEDS TO BE TAKEN AT THE SAME TIME EVERY SINGLE DAY---TAKE ONCE A DAY. 4) DOXYCYCLINE 100 MG (ANTIBIOTIC FOR YOUR INFECTION)---TAKE 1 CAPSULE BY MOUTH TWICE A DAY (MORNING AND EVENING) FOR 7 MORE DAYS. START TAKING TONIGHT WITH FOOD. 5) FLORASTOR 250 MG (VITAMIN FOR YOUR STOMACH WHILE YOUR TAKING THE ANTIBIOTICS)---TAKE 1 CAPSULE BY MOUTH TWICE A DAY (MORNING AND EVENING) FOR 10 DAYS. 6) HIV MEDICATIONS: A) TIVICAY 50 MG---TAKE 1 TABLET BY MOUTH ONCE A DAY---START TOMORROW, 12/24. B) TRUVADA 200/300 MG---TAKE 1 TABLET BY MOUTH ONCE A DAY---START TOMORROW, 12/24. -FOR FURTHER QUESTIONS OR CONCERNS, CONTACT DR. MILLER OR DR. BHATIA. Objective - Vital Signs/Intake and Output Vital Signs (last 24 hours): Temp Pulse Resp BP Pulse Ox 98.2 F 87 20 111/75 97 12/23/17 07:00 12/23/17 07:00 12/23/17 07:00 12/23/17 07:00 12/23/17 07:00 Intake and Output: 12/23/17 12/23/17 06:59 18:59 Intake Total 0 Balance 0 - Medications Medications: Current Medications Acetaminophen (Tylenol 325mg Tab) 650 mg PO Q4H PRN PRN Reason: pain fever Last Admin: 12/17/17 17:34 Dose: 650 mg Divalproex Sodium (Depakote Dr) 1,000 mg PO BID [facility] Last Admin: 12/23/17 10:23 Dose: 1,000 mg Dolutegravir Sodium (Tivicay) 50 mg PO DAILY [facility]; Protocol Last Admin: 12/23/17 10:23 Dose: 50 mg Doxycycline Hyclate (Doryx) 100 mg PO Q12H [facility]; Protocol Last Admin: 12/23/17 06:20 Dose: 100 mg Doxycycline Hyclate (Doryx) 100 mg PO Q12H [facility]; Protocol Emtricitabine/Tenofovir (Truvada 200 Mg-300 Mg) 1 tab PO DAILY [facility]; Protocol Last Admin: 12/23/17 10:23 Dose: 1 tab Enoxaparin Sodium (Lovenox) 30 mg SC DAILY [facility] Last Admin: 12/23/17 10:23 Dose: 30 mg Famotidine (Pepcid) 40 mg PO DAILY [facility] Last Admin: 12/23/17 10:23 Dose: 40 mg Ondansetron HCl (Zofran Inj) 4 mg IVP Q6 PRN PRN Reason: Nausea/Vomiting Last Admin: 12/21/17 10:19 Dose: 4 mg Quetiapine Fumarate (Seroquel) 50 mg PO HS [facility] Last Admin: 12/22/17 21:23 Dose: 50 mg Trimethoprim/Sulfamethoxazole (Bactrim Ds Tab) 1 tab PO 0630,1830 [facility]; Protocol Last Admin: 12/23/17 06:20 Dose: 1 tab Trimethoprim/Sulfamethoxazole (Bactrim Ds Tab) 1 tab PO Q12H [facility]; Protocol - Labs Labs: 12/22/17 06:23 12/22/17 06:23
== END 2017-12-23 12:53 | disposition home or self-care (01) | DRG 552 ==
LOC: C.ER 11:38 → C.9E 17:29 → C.6T 22:49 → OBSVTOIN 12-18 13:38
PROVIDERS: ADMIT Internal Medicine; ATTEND Internal Medicine
DX: K62.89 Other specified diseases of anus and rectum (principal); B20 Human immunodeficiency virus [HIV] disease; R78.81 Bacteremia; F20.9 Schizophrenia, unspecified; B95.7 Other staphylococcus as the cause of diseases classified elsewhere; F31.9 Bipolar disorder, unspecified; E16.2 Hypoglycemia, unspecified; Z91.14 Patient's other noncompliance with medication regimen; F17.210 Nicotine dependence, cigarettes, uncomplicated; F43.10 Post-traumatic stress disorder, unspecified; I86.1 Scrotal varices; N50.3 Cyst of epididymis